=== PATIENT | female | born 1970 | race Caucasian/White ===

== ENCOUNTER 2020-01-08 10:54 | Emergency (ER) | payer OTHER, SELFPAY ==
--- NOTE | ~2020-01-08 | XR_ITS ---
EXAMINATION: XR foot RT min 3V EXAM DATE: 01/08/2020 11:36 INDICATION: Initial encounter following injury, with pain of the right foot. TECHNIQUE: Right foot dorsoplantar, lateral and oblique projections obtained and reviewed. There is no prior study for comparison. FINDINGS: There is acute nondisplaced right fifth closed posttraumatic metatarsal base fracture exte nding toward the fourth metatarsal base, a Simpson type fracture. There is overlying soft tissue swelli ng. No other suspicious right foot findings. IMPRESSION: Acute nondisplaced right Simpson fracture. Reviewed, dictated and finalized at location A. LIFT ATTENDANT
[2020-01-08 11:29] VITALS: BP 138/61; PULSE 81; RESP 20; TEMP 37.1; O2SAT 100
--- NOTE | 2020-01-08 12:15 | ED.LOWEXIN ---
HPI - Extremity Injury (Lower) General Chief Complaint: Extremity Injury, Lower Stated Complaint: r/foot pain Source: patient Mode of arrival: ambulatory Limitations: no limitations History of Present Illness HPI Narrative: Patient is a 49-year-old female who presents complaining of right foot pain. Patient reports she stepped o off of a step on her foot wrong yesterday. Patient reports she was seen in ED yesterday for an anaphylactic reaction to antibiotics but did not even mention foot pain. Patient reports increased pain and swelling as well as increased pain with ambulation. She denies taking [id number] medications for pain. She denies using ice or elevation. Related Data Home Medications Medication Instructions Recorded Confirmed aspirin 81 mg tablet,delayed 81 mg PO DAILY 11/02/19 01/08/20 release blood-glucose meter #1 each 11/02/19 12/24/19 gabapentin 600 mg tablet 600 mg PO DAILY 11/02/19 01/08/20 lisinopril 10 mg tablet 10 mg PO DAILY 11/02/19 01/08/20 metformin 500 mg tablet,extended 500 mg PO BID 11/02/19 01/08/20 release 24 hr omeprazole 20 mg capsule,delayed 20 mg PO DAILY 11/02/19 01/08/20 release blood sugar diagnostic #10 each 12/24/19 12/24/19 lancets 33 gauge #100 each 12/24/19 12/24/19 Allergies Allergy/AdvReac Type Severity Reaction Status Date / Time sulfamethizole Allergy Unknown Tachycardia Verified 05/27/19 10:38 trimethoprim Allergy Unknown Tachycardia Verified 05/27/19 10:38 AMOXICILLIN TRIHYDRATE Allergy Mild HIVES Uncoded 06/19/10 11:12 POTASSIUM CLAVULANATE Allergy Mild HIVES Uncoded 06/19/10 11:12 Review of Systems Review of Systems: Narrative: CONSTITUTIONAL: Denies fever, chills, or sweats. EYES: Denies visual changes, redness, or discharge. ENT: Denies rhinorrhea, congestion, sore throat, or otalgia. CARDIOVASCULAR: Denies chest pain, palpitations, or edema. RESPIRATORY: Denies cough or dyspnea. GASTROINTESTINAL: Denies abdominal pain, nausea, vomiting, or diarrhea. GENITOURINARY: Denies dysuria or hematuria. SKIN: Denies rash or itching. MUSCULOSKELETAL: Denies back pain, joint pain, or myalgia. Reports right foot pain and swelling NEUROLOGIC: Denies headache, numbness, dizziness, or weakness. PSYCHIATRIC: Denies anxiety or depression. [facility] Past Medical History Medical History Acute non-recurrent maxillary sinusitis Chronic low back pain without sciatica GERD (gastroesophageal reflux disease) Family History Family History Grandparent Hypertension Family history of kidney disease Family history of dementia Family history of throat cancer Family history of malignant neoplasm of urinary bladder Mother Acute myocardial infarction Family history of chronic obstructive pulmonary disease Social History Social History Smoking status: Heavy tobacco smoker Alcohol intake: current Gender identity (if verbalized by the patient): Female Exam Narrative: Exam Narrative: GENERAL: Well-appearing, well-nourished, and in no acute distress. HEAD: Normocephalic, atraumatic. EYES: No redness or drainage. Conjunctiva are normal. ENT: Mucous membranes pink and moist. CHEST: No respiratory distress. Clear to auscultation. HEART: Regular rate and rhythm. No murmur appreciated. Normal peripheral pulses. EXTREMITIES: Mild edema and point tenderness to right lateral foot. Distal sensation intact, good peripheral pulses, good capillary refill SKIN: Warm, dry, no rash. NEURO: No focal deficits. Alert and oriented x3. Gait steady. PSYCH: Normal affect. No signs of depression or anxiety. Course Vital Signs Vital signs: Vital Signs Temperature 37.1 C 01/08/20 11:29 Pulse Rate 81 01/08/20 11:29 Respiratory Rate 01/08/20 11:29 Blood Pressure 138/61 01/08/20 11:29 Pulse Oximetry 100 0
== END 2020-01-08 12:29 | disposition home or self-care (01) ==
PROVIDERS: Emergency Provider Nurse Practitioner; PCP Family Medicine
DX: S92.354A Nondisplaced fracture of fifth metatarsal bone, right foot, initial encounter for closed fracture (principal); X50.0XXA Overexertion from strenuous movement or load, initial encounter; F17.200 Nicotine dependence, unspecified, uncomplicated; K21.9 Gastro-esophageal reflux disease without esophagitis
CPT/HCPCS: 29515; 73630; 99214; G0463

== ENCOUNTER → 2021-09-12 12:13 | Outpatient (CLI) | payer OTHER, SELFPAY ==
--- NOTE | ~2021-09-12 | XR_ITS ---
EXAMINATION: XR foot RT min 3V DATE: 09/12/2021 12:27 INDICATION: Right foot pain. TECHNIQUE: 4 views of right foot were obtained. COMPARISON: Right foot radiographs 01/08/2020 FINDINGS: Bone alignment is normal. No fracture. There is an old healed fracture of fifth metatarsal with internal fixation with lag screw. There is mild osteoarthritis of first interphalangeal joint, f irst metatarsophalangeal joint, and talonavicular joint. There are enthesophytes at the posterior and plantar aspects of calcaneal tuberosity. IMPRESSION: 1. Mild polyarticular osteoarthritis. Reviewed, dictated and finalized at location A.
--- NOTE | ~2021-09-12 | XR_ITS ---
XR foot LT min 3V DATE: 09/12/2021 12:27 INDICATION: Right foot pain, generalized TECHNIQUE: 4 views COMPARISON: None FINDINGS: There is distal Achilles tendon calcification. Mild plantar calcaneal enthesopathy. There is old fracture deformity of the proximal phalanx of the second digit and mild osteoarthritis a t the second metatarsophalangeal joint. No recent fracture or dislocation, periosteal reaction or bone destruction. No erosive change. IMPRESSION: Mild plantar calcaneal enthesopathy Distal Achilles tendon calcification Old fracture deformity of proximal phalanx of second digit and mild osteoarthritis at second metatars ophalangeal joint Reviewed, dictated and finalized at location B. IMPRESSION: Mild plantar calcaneal enthesopathy Distal Achilles tendon calcification Old fracture deformity of proximal phalanx of second digit and mild osteoarthri tis at second metatarsophalangeal joint
== END ==
PROVIDERS: PCP Family Medicine; Visit Provider Family Medicine
DX: M77.32 Calcaneal spur, left foot (principal); M19.071 Primary osteoarthritis, right ankle and foot
CPT/HCPCS: 73630

== ENCOUNTER → 2024-07-13 14:51 | Outpatient (CLI) | payer OTHER, SELFPAY ==
--- NOTE | ~2024-07-13 | XR_ITS ---
XR shoulder LT min 2V Ordering provider: Tremaine Johnston MD History: . M25.512 - Pain in left shoulder . Comparison: None. FINDINGS: BONES: No acute fracture or dislocation. JOINT SPACES: The acromioclavicular joint is normal. The glenohumeral joint is normal. SOFT TISSUES: Normal. IMPRESSION: No acute osseous abnormality left shoulder. Reviewed, dictated and finalized at location A.
== END ==
LOC: EXPTROY 14:55
PROVIDERS: PCP Family Medicine; Visit Provider Family Medicine
DX: M25.512 Pain in left shoulder (principal)
CPT/HCPCS: 73030

== ENCOUNTER 2024-11-03 08:14 | Outpatient (CLI) | payer OTHER, SELFPAY ==
--- NOTE | ~2024-11-03 | MR_ITS ---
EXAMINATION: MR shoulder LT wo con DATE: 11/03/2024 08:48 INDICATION: Left shoulder pain. Tendinitis. Left shoulder injury several months prior. TECHNIQUE: Magnetic resonance imaging (MRI) of the left shoulder was performed without intravenous co ntrast. Sequences included axial PD-weighted FS FSE, coronal oblique PD-weighted FS FSE, coronal obli que T2-weighted FS FSE, sagittal PD-weighted FS FSE, and sagittal T1-weighted SE. COMPARISON: None. FINDINGS: Coracoacromial arch: The acromion undersurface is minimally curved in morphology (type I-II). The coracoacromial ligament is normal. Moderate acromioclavicular osteoarthritis. Rotator cuff: Moderate supraspinatus and mild infraspinatus tendinopathy. There extending 1.5 cm along the superior facet footplate of the supraspinatus tendon which centrally appears full or near full-thickness but without significant medial retraction of the teres minor tendon is normal. Moderate subscapularis ten dinopathy with split tear between the portion of the tendon attached to the cephalad third of the les ser tuberosity and the more superficial portion of the tendon which remains attached to the intact tr ansverse humeral ligament and which extends 1 cm medially from the medial rim of the intertubercular groove. Normal rotator cuff muscle bulk and signal. Biceps tendon, glenoid labrum and glenohumeral cartilage: The long head of the biceps tendon is partially subluxed across the medial rim of the intertubercular groove at the site of the subscapularis tendon split tear. There is moderate tendinopathy and partia l thickness tear involving approximately half the cross-sectional area of the tendon centered at the junction of the internal extra-articular portions of the tendon. There is also an accessory head of t he long head biceps tendon which distally is contiguous with the articular sided fibers of the distal supraspinatus tendon. There is a superior, anterior to posterior tear of the glenoid labrum (SLAP te ar). Glenohumeral cartilage is normal. Fluid: There is a small glenohumeral joint effusion which extends into the deep subscapular recess. There is mild synovitis at the axillary recess. Additional mild increased fluid and mild tenosynovitis along the long head biceps tendon sheath. No loose osteochondral bodies. Mild increased fluid signal along the subacromial/subdeltoid bursa consistent with mild bursitis. Bones: Bone alignment is normal. No fracture or pathologic marrow replacing process. There is mild degenerat john subarticular cystlike change at the lateral head of the clavicle. There is additional mild degene rative cystic change at the lesser tuberosity and along the floor of the intertubercular groove. IMPRESSION: 1. Moderate supraspinatus and subscapularis tendinopathy with small tear with full/near full-thicknes s component along the superior facet of the supraspinatus tendon with additional small split tear fredis ng the cephalad third of the distal subscapularis tendon. 2. Bicipital tenosynovitis with moderate tendinopathy and partial-thickness tear at the junction of t he intra-articular and extra articular portion of the long head biceps tendon which is partially subl uxed into the subscapularis tendon tear defect. Of note there is intact except 3 long head biceps ten don which is contiguous with the bursal side of the anterior distal supraspinatus tendon. 3. SLAP tear at the superior glenoid labrum. 4. Moderate acromioclavicular osteoarthritis with mild underlying subacromial/subdeltoid bursitis. Reviewed, dictated and finalized at location A. VATING CONTRACTOR IMPRESSION: 1. Moderate supraspinatus and subscapularis tendinopathy with small tear with f ull/near full-thickness component along the superior facet of the supraspinatus tendon with additional small split tear along the cephalad third of the distal subscapularis tendon. 2. Bicipital tenosynovitis with moderate tendinopathy and partial-thickness tea r at the junction of the intra-articular and extra articular portion of the juliette g head biceps tendon which is partially subluxed into the subscapularis tendon tear defect. Of note there is intact except 3 long head biceps tendon which is contiguous with the bursal side of the anterior distal supraspinatus tendon. 3. SLAP tear at the superior glenoid labrum. 4. Moderate acromioclavicular osteoarthritis with mild underlying subacromial/s ubdeltoid bursitis.
== END 2024-11-03 08:15 | disposition home or self-care (01) ==
LOC: GOSHIMG 08:15
PROVIDERS: PCP Family Medicine; Visit Provider Orthopaedic Surgery
DX: M19.012 Primary osteoarthritis, left shoulder (principal); S43.432A Superior glenoid labrum lesion of left shoulder, initial encounter; X58.XXXA Exposure to other specified factors, initial encounter; M75.22 Bicipital tendinitis, left shoulder
CPT/HCPCS: 73221

== ENCOUNTER 2024-11-09 11:29 | Outpatient (CLI) | payer OTHER, SELFPAY ==
[2024-11-09 12:14] LABS: Anion Gap 4 mmol/L (4-12); Blood Urea Nitrogen 11 mg/dL (7-17); Calcium 9.5 mg/dL (8.4-10.2); Carbon Dioxide 32 mmol/L (22-30); Chloride 102 mmol/L (98-107); Estimated Glomerular Filt Rate 52; Glucose 91 mg/dL (65-110); Sodium 138 mmol/L (137-145)
== END 2024-11-09 11:30 | disposition home or self-care (01) ==
LOC: ANHLAB 11:30
PROVIDERS: PCP Family Medicine; Visit Provider Anesthesiology
DX: E11.9 Type 2 diabetes mellitus without complications (principal)
CPT/HCPCS: 36415; 80048

== ENCOUNTER 2024-11-11 03:05 | Day surgery (SDC) | payer OTHER, SELFPAY ==
[2024-11-05 12:19] VITALS: BMI 35.4
--- NOTE | 2024-11-05 12:20 | PC.NURSE ---
Report to the Outpatient Waiting Room, entrance under the green pavilion located off [facility], at time _0700_ on date _[phone]_. Planned Procedure Time: _0900_.? Time changes happen often and if your time is changed the preop area will call you the afternoon before. - You and your visitor will be asked to self-screen and do not enter if you have any COVID symptoms. Please call surgeon if you need to reschedule. - A mask is optional within the hospital at this time. Patients may have clear liquids (water, carbonated beverages, clear teas, apple juice) until 3 hours prior to surgery with a maximum of 20 ounces. - No food from midnight until time of surgery and no smoking. This includes no chewing gum, candy or mints. Take only the following medications with a SIP of water on the morning of surgery: __Buspirone, Duloxetine, Gabapentin and if needed Tramadol and or Flonase and or inhaler DO NOT STOP ANY OF YOUR OTHER PRESCRIPTION MEDICATIONS PRIOR TO SURGERY EXCEPT THE FOLLOWING Medications to discontinue per physician ___Vitamins stop 11-08-2024, Aspirin stop [id number]___Odpqb with Dr Tesfaye's office if need to stop Ibuprofen. Please no make-up, nail telugu, hairspray, perfume, deodorant, or body powder the day of surgery.? No jewelry (including any body piercings) or valuables the day of surgery, leave them at home.? Please take a shower or bath the night before, or the morning of, surgery with an antibacterial soap.? Wear comfortable, loose fitting clothing.? - Jewelry must be removed prior to entering the operating room.? Rings and piercings that are not removed may be cut off. - The hospital will not accept responsibility for valuables.? - Please leave all valuables, including medications, at home the day of surgery. If you are going home after surgery, a licensed p d driver must drive you home.? - NO public transportation without another adult if you receive anesthesia. - We recommend that an adult stay with you for 24 hours following discharge. - We also recommend that you do not drive, make important decision, drink alcoholic beverages, or take any drugs that were not prescribed by your health care provider for at least 24 hours after your discharge time. Follow any additional instructions given to you from your surgeon. Telephone instructions given to __Kim__and asked if any additional questions and then verbalized understanding. Patient advised to call surgeon office or pre surgery nurse liaison [phone] if any additional questions.
--- NOTE | 2024-11-10 12:58 | PM.IMHP ---
H&P: HPI History of Present Illness Date/Time: 11/10/24 12:58 Chief Complaint: Patient shoulder pain left. She has weakness in the shoulder and pain with abduction external rotation. She has difficulty using her arm. She has failed conservative treatment like to consider repair of the rotator cuff and excision of the distal clavicle. Review of Systems Musculoskeletal: Musculoskeletal: Reports arthralgias, Reports joint swelling and Reports stiffness [facility] Past Medical History Medical History (Reviewed 11/05/24 @ 07:33 by Angela Bryant, [facility] [address]) Acute non-recurrent maxillary sinusitis Atherosclerosis of aorta (~02/28/24) severe atherosclerosis of the aorta and its branches on CT of the abdomen and pelvis 02/28/2024. Echo normal 03/10/2024. BMI 34.0-34.9,adult BMI 35.0-35.9,adult BMI 36.0-36.9,adult BMI 37.0-37.9, adult BMI 39.0-39.9,adult Body mass index [BMI] 38.0-38.9, adult Breast cancer screening by mammogram Chronic low back pain with bilateral sciatica Chronic low back pain without sciatica Colitis normal colonoscopy 07/27/2024. abdominal pain, thickening of the wall of the jejunum and descending colon 02/28/2024. Colon cancer screening 7 mm polyp of the transverse colon on 07/27/2024 with internal and external hemorrhoids. Recheck in 5 years. Constipation COPD (chronic obstructive pulmonary disease) COVID-19 (~04/13/23) tested positive 04/17/2023. Diarrhea Diarrhea Elevated liver enzymes AST 42, ALT 26, alkaline phosphatase 69 on 02/13/2022. AST 35, ALT 17 on 09/07/2024. Fatty infiltration of liver (~02/28/24) severe fatty infiltrate of liver on CT on 02/28/2024 mild ascites noted. Fibromyalgia GERD (gastroesophageal reflux disease) Grieving (06/13/24) Heart murmur previously undiagnosed Hypersomnia Simpson fracture Left anterior shoulder pain (~03/2024) X-ray of left shoulder on 07/13/2024 with no bony defects. Left hip pain MRI of the left hip on 04/19/2021 reveals mild left greater trochanteric bursitis and mild tendinopathy of the hamstring and gluteal muscles Low ferritin iron 50, 13% saturation, ferritin 12 on 06/27/2023. Morbid obesity with BMI of 40.0-44.9, adult Muscle spasm Nausea and vomiting Nuclear stress test on 09/25/2024 revealed no ischemia with baseline sinus bradycardia with nonspecific T-wave changes and normal scan with ejection fraction 66% with no EKG changes. Obesity (BMI 30-39.9) MARYJO on CPAP did not tolerate. Treated with weight loss. 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 Trial of auto titrating CPAP 6-18 cm water pressure. Patient declined treatment. Renal insufficiency BUN 12, creatinine 1.22 with GFR 53 on 09/07/2024. Rheumatoid arthritis Right anterior shoulder pain (~05/2022) Submandibular lymphadenitis (~03/01/24) left swollen, tender lymph Tendinopathy of left gluteal region Trochanteric bursitis of left hip Vitamin B12 deficiency Level normal at 469 with folic acid 24 on 06/27/2023. Yeast vaginitis Surgical History Surgical History Hx of foot surgery Family History Family History Grandparent Hypertension Family history of kidney disease Family history of dementia Family history of throat cancer Family history of malignant neoplasm of urinary bladder Mother Acute myocardial infarction Family history of chronic obstructive pulmonary disease CAD (coronary artery disease) Hypertension COPD (chronic obstructive pulmonary disease) Father No problems noted. Sibling Breast cancer Diabetes mellitus Social History Social History Smoking packs per day: 1 Smoking cigarettes per day: 20.0 Years smoked: 37 Smoking pack-years: 37.00 Smoking status: Current every day smoker Tobacco type: cigarettes Second hand tobacco smoke exposure: No Alcohol intake: never Substance use: current Substance use type: marijuana Other substance usage details: Every evening. Current Housing: Decline to Answer Concerned About Future Housing: Decline to Answer Difficulty Paying Gas/Electric Bills: Decline to Answer Difficulty Paying for Meds: Decline to Answer Currently Unemployed: Decline to Answer Education: Decline to Answer Difficulty w/ Childcare or Family Care: Decline to Answer Living arrangements: with family Occupation/Education: occupation Additional occupation/education comments: RN Gender identity (if verbalized by the patient): Female Spiritual care concerns: No Meds Home Medications and Allergies Home Medications ?Medication ?Instructions ?Recorded ?Confirmed ?Type aspirin 81 mg tablet,delayed 81 mg PO DAILY 11/02/19 11/05/24 History release (Adult Low Dose Aspirin) blood-glucose meter (Contour Next #1 ea 11/02/19 11/05/24 History EZ Meter kit) blood sugar diagnostic (Contour #10 ea 12/24/19 11/05/24 History Next Test Strips) lancets 33 gauge (BD Ultra Fine #100 ea 12/24/19 11/05/24 History Lancets) epinephrine 0.3 mg/0.3 mL 0.3 mg (0.3 mL) IM ONCE PRN 01/28/20 11/05/24 Rx injection, auto-injector (EpiPen) anaphylaxis #1 ea tramadol 50 mg tablet 100 mg PO TID PRN pain 07/24/22 11/05/24 History hydrochlorothiazide 25 mg tablet 25 mg PO . q.a.m. 01/10/23 11/05/24 History lisinopril 40 mg tablet 40 mg PO . q.a.m. 01/10/23 11/05/24 History cyanocobalamin (vitamin B-12) 1,000 mcg PO DAILY 07/29/23 11/05/24 History 1,000 mcg tablet atorvastatin 10 mg tablet 10 mg PO DAILY #90 tabs 10/17/23 11/05/24 Rx folic acid 1 mg tablet 1 mg PO DAILY #90 tabs 10/17/23 11/05/24 Rx metformin 500 mg tablet,extended 500 mg PO BID #180 tabs 10/17/23 11/05/24 Rx release 24 hr fluticasone propionate 50 1 spray intranasal BID #16 grams 02/13/24 11/05/24 Rx mcg/actuation nasal spray,suspension (Flonase Allergy Relief) albuterol 90 mcg-budesonide 80 2 inh inhalation QID PRN shortness 03/03/24 11/05/24 Rx mcg/actuation HFA aerosol inhaler of breath or wheezing #10.7 grams (Airsupra) ibuprofen 200 mg tablet 800 mg PO BID PRN Pain 07/13/24 11/05/24 History semaglutide 0.25 mg or 0.5 mg (2 0.5 mg (0.736 mL) subcut WEEKLY #3 09/07/24 11/05/24 Rx mg/3 mL) subcutaneous pen injector mL (Ozempic) duloxetine 60 mg capsule,delayed 60 mg PO BID #180 caps 10/08/24 11/05/24 Rx release (Cymbalta) omeprazole 40 mg capsule,delayed 40 mg PO DAILY #90 caps 10/08/24 11/05/24 Rx release gabapentin 800 mg tablet 800 mg PO TID #270 tabs 10/16/24 11/05/24 Rx buspirone 10 mg tablet 10 mg PO BID 11/05/24 11/05/24 History cholecalciferol (vitamin D3) 125 125 mcg PO DAILY 11/05/24 11/05/24 History mcg (5,000 unit) tablet (Vitamin D3) Allergies Allergy/AdvReac Type Severity Reaction Status Date / Time amoxicillin Allergy Severe Hives Verified 11/05/24 14:32 sulfamethizole Allergy Unknown Tachycardia Verified 11/05/24 12:07 trimethoprim Allergy Unknown Tachycardia Verified 11/05/24 12:07 Exam Narrative: On exam patient has impingement of the left shoulder. She is weak in abduction external rotation has pain with overhead activity. Neurologically she is grossly intact. She does have good neck motion without match in the way of radicular symptoms. She has pain with any motion of her arm. She is tender over degenerative the acromioclavicular joint as well. Eyes: General: appearance normal, both eyes and all related structures Neck: Neck: supple Resp: Effort & Inspection: normal respiratory effort Cardio: Rate: regular rate Rhythm: regular rhythm Radiology Reports: Comments: Patient: Miranda Lee EXAMINATION: MR shoulder LT wo con DATE: 11/03/2024 08:48 INDICATION: Left shoulder pain. Tendinitis. Left shoulder injury several months prior. TECHNIQUE: Magnetic resonance imaging (MRI) of the left shoulder was performed without intravenous contrast. Sequences included axial PD-weighted FS FSE, coronal oblique PD-weighted FS FSE, coronal oblique T2-weighted FS FSE, sagittal PD-weighted FS FSE, and sagittal T1-weighted SE. COMPARISON: None. FINDINGS: Coracoacromial arch: The acromion undersurface is minimally curved in morphology (type I-II). The coracoacromial ligament is normal. Moderate acromioclavicular osteoarthritis. Rotator cuff: Moderate supraspinatus and mild infraspinatus tendinopathy. There extending 1.5 cm along the superior facet footplate of the supraspinatus tendon which centrally appears full or near full-thickness but without significant medial retraction of the teres minor tendon is normal. Moderate subscapularis tendinopathy with split tear between the portion of the tendon attached to the cephalad third of the lesser tuberosity and the more superficial portion of the tendon which remains attached to the intact transverse humeral ligament and which extends 1 cm medially from the medial rim of the intertubercular groove. Normal rotator cuff muscle bulk and signal. Biceps tendon, glenoid labrum and glenohumeral cartilage: The long head of the biceps tendon is partially subluxed across the medial rim of the intertubercular groove at the site of the subscapularis tendon split tear. There is moderate tendinopathy and partial thickness tear involving approximately half the cross-sectional area of the tendon centered at the junction of the internal extra-articular portions of the tendon. There is also an accessory head of the long head biceps tendon which distally is contiguous with the articular sided fibers of the distal supraspinatus tendon. There is a superior, anterior to posterior tear of the glenoid labrum (SLAP tear). Glenohumeral cartilage is normal. Fluid: There is a small glenohumeral joint effusion which extends into the deep subscapular recess. There is mild synovitis at the axillary recess. Additional mild increased fluid and mild tenosynovitis along the long head biceps tendon sheath. No loose osteochondral bodies. Mild increased fluid signal along the subacromial/subdeltoid bursa consistent with mild bursitis. Bones: Bone alignment is normal. No fracture or pathologic marrow replacing process. There is mild degenerative subarticular cystlike change at the lateral head of the clavicle. There is additional mild degenerative cystic change at the lesser tuberosity and along the floor of the intertubercular groove. IMPRESSION: 1. Moderate supraspinatus and subscapularis tendinopathy with small tear with full/near full-thickness component along the superior facet of the supraspinatus tendon with additional small split tear along the cephalad third of the distal subscapularis tendon. 2. Bicipital tenosynovitis with moderate tendinopathy and partial-thickness tear at the junction of the intra-articular and extra articular portion of the long head biceps tendon which is partially subluxed into the subscapularis tendon tear defect. Of note there is intact except 3 long head biceps tendon which is contiguous with the bursal side of the anterior distal supraspinatus tendon. 3. SLAP tear at the superior glenoid labrum. 4. Moderate acromioclavicular osteoarthritis with mild underlying subacromial/subdeltoid bursitis. Foot X-Ray 09/12/21 Shoulder X-Ray 07/13/24 Shoulder MRI 11/03/24 Assessment and Plan Assessment and plan (1) Rotator cuff tear, left: Code(s): M75.102 - Unspecified rotator cuff tear or rupture of left shoulder, not specified as traumatic Status: Acute Assessment and Plan: Patient has rotator cuff tear left. She has got pain with overhead motion she is weak in abduction external rotation has pain and give-way with any activity she is tender over the AC joint as well. Has failed conservative treatment today she has had medicine therapy cortisone exercise and time. She would like to consider rotator cuff surgery. Will begin with arthroscopy of the shoulder assess the joint. And then proceed with open distal clavicle excision rotator cuff debridement repair. I have discussed this with her risks benefits limitations and alternatives in detail she understands and agrees would like to proceed. (2) Acromioclavicular arthrosis: Code(s): M19.019 - Primary osteoarthritis, unspecified shoulder Status: Acute
[2024-11-11] VITALS (9 sets, daily range): BP systolic 91–154; BP diastolic 38–69; PULSE 61–66; RESP 12–18; TEMP 36.2–37.1; O2SAT 98–100
[2024-11-11] MEDS: ACETAMINOPHEN 500 MG TABLET 1000 MG PO (07:35)
[2024-11-11] MEDS: KETOROLAC 15 MG/ML VIAL (*BKC) IV PUSH (07:35)
[2024-11-11 07:38] LABS: Glucose Point of Care 118 mg/dl (65-105)
--- NOTE | 2024-11-11 08:15 | WPDHPUPDATE1 ---
History and Physical Update Update Date/Time: 11/11/24 08:15 History and Physical has been reviewed, including an updated exam of the patient. There are NO changes in the patient's condition. Risks, benefits, and alternatives have been discussed and questions answered. Patient agrees to proceed with procedure.
--- NOTE | 2024-11-11 08:37 | WPDANESEPPF ---
Anes - Initial Pre Proc Eval Procedure: Operation Date: 11/11/24 09:00 Proposed Procedures p Left Shoulder Arthroscopy, Open Rotator Cuff Repair, Distal Clavicle Excision, Biceps Tenolysis versus Biceps Tenodesis - Aldair Tesfaye MD Date/Time: 11/11/24 08:37 Surgeon: Aldair Tesfaye MD Pre Op Diagnosis: Lt Rot Cuff Tear, AC Arthritis, Left Biceps Tear Patient Data Age: 54 Gender: F Height: 1.6 m Weight: 90.9 kg Last Vital Signs Temp 97.2 F L 11/11/24 06:59 Pulse 63 11/11/24 06:59 Resp 16 11/11/24 06:59 BP 128/51 L 11/11/24 06:59 Pulse Ox 99 11/11/24 06:59 O2 Del Method Room Air 11/11/24 06:59 Allergies Allergy/AdvReac Type Severity Reaction Status Date / Time amoxicillin Allergy Severe Hives Verified 11/11/24 07:03 sulfamethizole Allergy Unknown Tachycardia Verified 11/11/24 07:03 trimethoprim Allergy Unknown Tachycardia Verified 11/11/24 07:03 Home Medications ?Medication ?Instructions ?Recorded ?Confirmed ?Type aspirin 81 mg tablet,delayed 81 mg PO DAILY 11/02/19 11/05/24 History release (Adult Low Dose Aspirin) blood-glucose meter (Contour Next #1 ea 11/02/19 11/05/24 History EZ Meter kit) blood sugar diagnostic (Contour #10 ea 12/24/19 11/05/24 History Next Test Strips) lancets 33 gauge (BD Ultra Fine #100 ea 12/24/19 11/05/24 History Lancets) epinephrine 0.3 mg/0.3 mL 0.3 mg (0.3 mL) IM ONCE PRN 01/28/20 11/05/24 Rx injection, auto-injector (EpiPen) anaphylaxis #1 ea tramadol 50 mg tablet 100 mg PO TID PRN pain 07/24/22 11/05/24 History hydrochlorothiazide 25 mg tablet 25 mg PO . q.a.m. 01/10/23 11/05/24 History lisinopril 40 mg tablet 40 mg PO . q.a.m. 01/10/23 11/05/24 History cyanocobalamin (vitamin B-12) 1,000 mcg PO DAILY 07/29/23 11/05/24 History 1,000 mcg tablet atorvastatin 10 mg tablet 10 mg PO DAILY #90 tabs 10/17/23 11/05/24 Rx folic acid 1 mg tablet 1 mg PO DAILY #90 tabs 10/17/23 11/05/24 Rx metformin 500 mg tablet,extended 500 mg PO BID #180 tabs 10/17/23 11/05/24 Rx release 24 hr fluticasone propionate 50 1 spray intranasal BID #16 grams 02/13/24 11/05/24 Rx mcg/actuation nasal spray,suspension (Flonase Allergy Relief) albuterol 90 mcg-budesonide 80 2 inh inhalation QID PRN shortness 03/03/24 11/05/24 Rx mcg/actuation HFA aerosol inhaler of breath or wheezing #10.7 grams (Airsupra) ibuprofen 200 mg tablet 800 mg PO BID PRN Pain 07/13/24 11/05/24 History semaglutide 0.25 mg or 0.5 mg (2 0.5 mg (0.736 mL) subcut WEEKLY #3 09/07/24 11/05/24 Rx mg/3 mL) subcutaneous pen injector mL (Ozempic) duloxetine 60 mg capsule,delayed 60 mg PO BID #180 caps 10/08/24 11/05/24 Rx release (Cymbalta) omeprazole 40 mg capsule,delayed 40 mg PO DAILY #90 caps 10/08/24 11/05/24 Rx release gabapentin 800 mg tablet 800 mg PO TID #270 tabs 10/16/24 11/05/24 Rx buspirone 10 mg tablet 10 mg PO BID 11/05/24 11/05/24 History cholecalciferol (vitamin D3) 125 125 mcg PO DAILY 11/05/24 11/05/24 History mcg (5,000 unit) tablet (Vitamin D3) Laboratory Tests 11/11/24 07:19 POC Capillary Glucose 118 H mg/dl (65-105) Patient hx anesthesia problems: none Family hx anesthesia problems: none Results Review: All pre-operative results and documents have been reviewed as part of the pre-operative evaluation. [facility] Past Medical History Medical History Renal insufficiency BUN 12, creatinine 1.22 with GFR 53 on 09/07/2024. BMI 34.0-34.9,adult Nausea and vomiting Nuclear stress test on 09/25/2024 revealed no ischemia with baseline sinus bradycardia with nonspecific T-wave changes and normal scan with ejection fraction 66% with no EKG changes. Left anterior shoulder pain (~03/2024) X-ray of left shoulder on 07/13/2024 with no bony defects. Grieving (06/13/24) Diarrhea COPD (chronic obstructive pulmonary disease) BMI 35.0-35.9,adult Submandibular lymphadenitis (~03/01/24) left swollen, tender lymph Atherosclerosis of aorta (~02/28/24) severe atherosclerosis of the aorta and its branches on CT of the abdomen and pelvis 02/28/2024. Echo normal 03/10/2024. Colitis normal colonoscopy 07/27/2024. abdominal pain, thickening of the wall of the jejunum and descending colon 02/28/2024. Fatty infiltration of liver (~02/28/24) severe fatty infiltrate of liver on CT on 02/28/2024 mild ascites noted. BMI 36.0-36.9,adult Constipation Muscle spasm Low ferritin iron 50, 13% saturation, ferritin 12 on 06/27/2023. Vitamin B12 deficiency Level normal at 469 with folic acid 24 on 06/27/2023. Chronic low back pain with bilateral sciatica COVID-19 (~04/13/23) tested positive 04/17/2023. Diarrhea Obesity (BMI 30-39.9) Colon cancer screening 7 mm polyp of the transverse colon on 07/27/2024 with internal and external hemorrhoids. Recheck in 5 years. Fibromyalgia Morbid obesity with BMI of 40.0-44.9, adult Right anterior shoulder pain (~05/2022) Breast cancer screening by mammogram MARYJO on CPAP did not tolerate. Treated with weight loss. 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 Trial of auto titrating CPAP 6-18 cm water pressure. Patient declined treatment. BMI 37.0-37.9, adult Tendinopathy of left gluteal region Trochanteric bursitis of left hip Hypersomnia Heart murmur previously undiagnosed Body mass index [BMI] 38.0-38.9, adult Left hip pain MRI of the left hip on 04/19/2021 reveals mild left greater trochanteric bursitis and mild tendinopathy of the hamstring and gluteal muscles BMI 39.0-39.9,adult Elevated liver enzymes AST 42, ALT 26, alkaline phosphatase 69 on 02/13/2022. AST 35, ALT 17 on 09/07/2024. Rheumatoid arthritis Yeast vaginitis Simpson fracture Chronic low back pain without sciatica Acute non-recurrent maxillary sinusitis GERD (gastroesophageal reflux disease) Surgical History Surgical History Hx of foot surgery Family History Family History Grandparent Hypertension Family history of kidney disease Family history of dementia Family history of throat cancer Family history of malignant neoplasm of urinary bladder Mother Acute myocardial infarction Family history of chronic obstructive pulmonary disease CAD (coronary artery disease) Hypertension COPD (chronic obstructive pulmonary disease) Father No problems noted. Sibling Breast cancer Diabetes mellitus Social History Social History Smoking packs per day: 1 Smoking cigarettes per day: 20.0 Years smoked: 37 Smoking pack-years: 37.00 Smoking status: Current every day smoker Tobacco type: cigarettes Second hand tobacco smoke exposure: No Alcohol intake: never Substance use: current Substance use type: marijuana Other substance usage details: Every evening. 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 ) Neurological: alert and oriented Last oral intake: >/= 8 hours ASA classification: III Emergent: no Anesthetic plan: proceed Anesthesia type and monitoring: general ETT and standard monitoring Results Review: All pre-operative results and documents have been reviewed as part of the pre-operative evaluation. COPD, now vapes daily, at approx 430 am today. MARYJO but no longer on CPAP after 60 lb wt loss. DM fsbs 118. Nml stress test 09/2024. Shared decision w pt and friend to forego ISB due to risk of phrenic nerve involvement and dyspnea in this pt w COPD and hx MARYJO. Informed Consent: The patient's anesthetic plan and its attendant risks and benefits were discussed with the patient/family/POA. Questions were solicited and answers provided to the satisfaction of the patient/family/POA.
[2024-11-11] MEDS: ceFAZolin 2 GM/D5W 50 ML 2 GM/50 ML BAG IVPB (09:10)
[2024-11-11] MEDS: LIDO 1%/EPINEPHRINE 1:100,000 50 ML VIAL 30 ML INFILTRATE (09:31)
--- NOTE | 2024-11-11 10:01 | P.OP_ITS ---
Procedure Note - Detailed Date of Procedure 11/11/24 Pre-op Diagnosis LEFT Rotator Cuff Tear AC Arthritis LEFT Biceps Teendinitis Post-op Diagnosis Same Procedure Performed Rotator cuff repair, distal clavicle excision Surgeon Aldair Tesfaye MD Assistant Manager [facility] Anesthesia General Description of Procedure Patient brought to the operative room #7. A general anesthetic was administered. The patient was placed in the beach chair position with the LEFT shoulder exposed.? After sterile prep and drape, standard posterior and lateral portals were used for arthroscopy. The joint itself looked reasonably good. The biceps tendon showed fraying but only in about 10 to 20% of the tendon this was debrided and left. The remaining biceps tendon was intact.? There was fraying and tearing of the rotator cuff area in the supraspinatus tear region. This was gently debrided.? The subacromial space had an intense bursa, this was debrided with a shaver and acromioplasty performed arthroscopically.? The subacromial space was quite tight initially. I then proceeded to open the shoulder. A longitudinal incision made from the AC joint distalward over the shoulder.? Dissection carried down to the fascia. The fascia overlying the acromioclavicular joint was split. The AC joint found and a distal clavicle excision performed removing 3 to 4 millimeters of bone.? The edges beveled.? The deltoid was then split from the tip of the acromion. The remainder of the bursa was debrided.? The rotator cuff was torn in the supraspinatus interval. This was debrided and repaired to bone using #2 Ethibond suture.? At this point the deltoid was repaired to itself,the acromion and the trapezius #2 Ethibond. The skin was closed with 2-0 Vicryl and cindy.? Sterile dressing applied patient tolerated well left the operating room satisfactory condition. Estimated Blood Loss 50 Drains No Packing No Pathology None sent Complications No immediate complications Condition Stable Disposition PACU [facility] Billing Surgery - Charge Forward: Surgery Billing ([id number] RTC Repair: [id number] DCE)
[2024-11-11] MEDS: LACTATED RINGERS 1,000 ML 30 ML IV CONT ×2 (10:37)
[2024-11-11 10:43] LABS: Glucose Point of Care 99 mg/dl (65-105)
[2024-11-11] MEDS: fentaNYL CITRATE INJ (*CRX) 100 MCG/2 ML VIAL 25 MCG IV PUSH ×3 (11:28→11:33)
[2024-11-11] MEDS: oxyCODONE HCL (*CRX) 5 MG TAB IR PO (12:05)
== END 2024-11-11 12:33 | disposition home or self-care (01) ==
PROVIDERS: PCP Family Medicine; Visit Provider Orthopaedic Surgery
PROC: (CPT 29805; principal; 2024-11-11 09:00)
DX: M75.102 Unspecified rotator cuff tear or rupture of left shoulder, not specified as traumatic (principal); M19.012 Primary osteoarthritis, left shoulder; M75.22 Bicipital tendinitis, left shoulder; J44.9 Chronic obstructive pulmonary disease, unspecified; K21.9 Gastro-esophageal reflux disease without esophagitis; G47.10 Hypersomnia, unspecified; M62.838 Other muscle spasm; G47.33 Obstructive sleep apnea (adult) (pediatric); N28.9 Disorder of kidney and ureter, unspecified; M06.9 Rheumatoid arthritis, unspecified; E53.8 Deficiency of other specified B group vitamins; I70.0 Atherosclerosis of aorta; M54.32 Sciatica, left side; M54.31 Sciatica, right side; G89.29 Other chronic pain; F12.90 Cannabis use, unspecified, uncomplicated; F17.210 Nicotine dependence, cigarettes, uncomplicated; E66.9 Obesity, unspecified; Z68.35 Body mass index [BMI] 35.0-35.9, adult; Z99.89 Dependence on other enabling machines and devices; Z79.891 Long term (current) use of opiate analgesic; Z79.84 Long term (current) use of oral hypoglycemic drugs; Z79.51 Long term (current) use of inhaled steroids; Z79.1 Long term (current) use of non-steroidal anti-inflammatories (NSAID); Z79.85 Long-term (current) use of injectable non-insulin antidiabetic drugs; Z79.82 Long term (current) use of aspirin; Z98.890 Other specified postprocedural states; Z80.1 Family history of malignant neoplasm of trachea, bronchus and lung; Z80.52 Family history of malignant neoplasm of bladder; Z80.3 Family history of malignant neoplasm of breast; Z82.49 Family history of ischemic heart disease and other diseases of the circulatory system
CPT/HCPCS: 23412; 23120; 82948; A4565; A9270; J0690; J1100; J1885; J2003; J2004; J2250; J2270; J2405; J2704; J3010; J7120

== ENCOUNTER 2025-07-19 14:08 | Outpatient (CLI) | payer OTHER, SELFPAY ==
--- NOTE | ~2025-07-19 | MR_ITS ---
MRI of the lumbar spine Clinical History: Gait abnormality Technique: Axial T2-weighted images, and sagittal T1-weighted, T2-weighted, and T2 fat-sat images were acquired. Findings: There is no fracture or subluxation of the lumbar spine. Vertebral bodies maintain normal height and alignment. No suspicious bone marrow signal abnormality seen. There are reactive marrow signal changes about the L3-L4 disc space. At L1-L2, there is disc bulge with mild facet arthropathy. No central canal stenosis. There is mild left neural foraminal narrowing. Right neural foramen preserved. At L2-L3, there is mild disc bulge and mild facet arthropathy. No central canal stenosis. There is mild bilateral neural foraminal narrowing. At L3-L4, there is diffuse disc bulge with severe facet arthropathy. There is severe spinal canal stenosis/thecal sac compression. There is severe bilateral neural foraminal compromise. At L4-L5, there is diffuse disc bulge with severe facet arthropathy. There is mild central canal stenosis. There is severe right neural foraminal narrowing, and moderate to severe left neural foraminal narrowing. At L5-S1, there is no disc bulge or herniation. There is severe right facet arthropathy. No central canal stenosis or neural foraminal narrowing. Paravertebral soft tissues are unremarkable. Impression: Advanced degenerative spondylosis, especially at L3-L4 and L4-L5. Please see details above. Reviewed, dictated and finalized at [facility] M. Impression: Advanced degenerative spondylosis, especially at L3-L4 and L4-L5. Please see de tails above.
--- NOTE | ~2025-07-19 | MR_ITS ---
MRI of the brain Clinical History: Gait abnormality Technique: Axial and sagittal T1-weighted images were acquired. These were followed by axial T2-weighted, diffusion weighted, gradient, and FLAIR images. Findings: No significant signal abnormality seen in the brain parenchyma. No acute infarct, intracranial hemorrhage, or mass lesion. Ventricles and subarachnoid spaces are unremarkable. Orbits are unremarkable. Paranasal sinuses and mastoid air cells are clear. Major intracranial flow voids are intact. Sagittal midline structures are intact. IMPRESSION: Normal exam. Reviewed, dictated and finalized at location M. IMPRESSION: Normal exam.
== END 2025-07-19 14:09 | disposition home or self-care (01) ==
LOC: GOSHIMG 14:09
PROVIDERS: PCP Family Medicine; Visit Provider Family Medicine
DX: R26.9 Unspecified abnormalities of gait and mobility (principal); R41.89 Other symptoms and signs involving cognitive functions and awareness; M47.896 Other spondylosis, lumbar region
CPT/HCPCS: 70551; 72148

== ENCOUNTER 2025-08-31 12:36 | Outpatient (CLI) | payer OTHER, SELFPAY ==
--- OUTSIDE RECORDS SUMMARY | 2025-08-31 12:39 | XMS_ITS | Clinical Summary ---
Author Organization [facility] Address [address] [address] Care Team Providers Care Data Management Associate Name Role Phone Tremaine Johnston MD Primary Care Provider [phone] Source Comments [facility],non-owned Affiliates and Associated Physician Practices is amultiple site organization consisting of ambulatory clinics and hospital sitesin [place], [place], [place] and [place]. This disclosure is being madepursuant to the Care Everywhere program and may not contain all information available regarding this patient. Last updated 18.[facility] Allergies Active Allergy Reactions Criticality Noted Date Comments Sulfamethoxazole W-Trimethoprim Anaphylaxis High 10/2021 Penicillins Anaphylaxis High 03/12/2021 Medications * Be aware that medications may not be up to date on this document. Alwaysverify current medications with the patient. atorvastatin (LIPITOR) 10 MG tablet 0 Active buPROPion XL 24hr (WELLBUTRIN-XL) 150 MG tablet bupropion HCl XL 150 mg 24 hr tablet, extended release Active busPIRone (BUSPAR) 15 MG tablet 0 Active DULoxetine (CYMBALTA) 60 MG capsule 0 Active EPINEPHrine (EPIPEN) 0.3 MG/0.3ML auto-injector pen epinephrine 0.3 mg/0.3 mL injection, auto-injector Active fluticasone propionate (FLONASE) 50 MCG/ACT nasal spray INSTILL 2 SPRAYS INTO EACH NOSTRIL ONCE A DAY NEEDED 0 Active folic acid (FOLVITE) 1 MG tablet Take 1 mg by mouth once daily 0 Active gabapentin (NEURONTIN) 100 MG capsule TAKE 2 CAPSULES TWICE DAILY FOR NEUROPATHY 1 Active leflunomide (ARAVA) 10 MG tablet Take 10 mg by mouth once daily 0 Active lisinopril (PRINIVIL; ZESTRIL) 10 MG tablet 0 Active metFORMIN ER 24hr (GLUCOPHAGE XR) 500 MG tablet 0 Active Methotrexate Sodium (METHOTREXATE, PF,) 50 MG/2ML injection INJECT 0.6 MILLILITER (15 MG) BY SUBCUTANEOUS ROUTE ONCE WEEKLY 0 Active omeprazole (PRILOSEC) 20 MG capsule 0 Active predniSONE (DELTASONE) 5 MG tablet TAKE 2 TABLETS BY ORAL ROUTE DAILY FOR 30 DAYS 1 Active OZEMPIC, 0.25 OR 0.5 MG/DOSE, 2 MG/1.5ML pen INJECT 0.5MG UNDER THE SKIN WEEKLY FOR 4 DOSES 1 Active traMADol (ULTRAM) 50 MG tablet TAKE 1 TABLET BY MOUTH WITH OVER THE COUNTER TYLENOL THREE TIMES DAILY NEEDED 1 Active Active Problems No known active problems Immunizations Immunization Administration Dates Next Due Ana [employer] primary monoval ent 12+ yr 0.3mL Purple cap 12/19/2020,11/27/2020 Social History Tobacco Use Types Packs/Day Years Used Date Smoking Tobacco: Every Day Smokeless Tobacco: Never Alcohol Use Standard Drinks/Week Comments Never 0 (1 standard drink = 0.6 oz pur e alcohol) AUDIT-C Answer Date Recorded Q1: How often do you have a drink containing alc ohol? 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 Legal Sex Female 10:47 PM HYDRAULIC PUNCH PRESS OPERATOR Gender Identity Female 12/01/2020 12:21 PM HYDRAULIC PUNCH PRESS OPERATOR Sexual Orientation Straight 12/01/2020 12 :21 PM HYDRAULIC PUNCH PRESS OPERATOR Last Filed Vital Signs Vital Sign Reading Time Taken Comments Blood Pressure 114/77 03/12/2021 9:50 AM CDT Pulse 65 03/12/2021 9:50 AM CDT Temperature 36.9 C (98.5 F) 03/12/2021 9:50 AM CDT Respiratory Rate 18 03/12/2021 9:50 AM CDT Oxygen Saturation 99% 03/12/2021 9:50 AM CDT Inhaled Oxygen Concentration - - Weight 104.3 kg (230 lb) 03/24/2021 8:41 AM CDT Height 160 cm (5' 3) 03/24/2021 8:41 AM CDT Body Mass Index 40.74 03/24/2021 8:41 AM CDT Plan of Treatment Health Maintenance Due Date Last Done Comments COLOGUARD (AGES 45-75) - COL ON CA SCREENING 1972 COLON MONITORING 1972 COLONOSCOPY - COLON CA SCREENING 1972 CT COLONOGRAPHY - COLON CA SCREENING 1972 Colorectal Cancer Screening 1972 FIT - COLON CA SCREENING 1972 FLEX SIG - COLON CA SCREENING 1972 MAMMOGRAM 1972 HIV SCREENING 1987 HEPATITIS C SCREENING 07/07/1990 DTAP/TDAP/TD VACCINES (1 - Tdap) 1991 HEPATITIS B VACCINE (1 of 3 - 19+ 3-dose series) 1991 PNEUMOCOCCAL VACCINE 50+ (1 of 2 - PCV) 1991 PAP SMEAR 1993 SCREENING FOR DIABETES 03/24/2021 ZOSTER VACCINE (1 of 2) 2022 DEPRESSION SCREENING 12/02/2024 COVID-19 VACCINE (3 - 2024-2 6 season) 2025 12/19/2020, 11/27/2020 INFLUENZA VACCINE (#1) 2025 HIB VACCINE Aged Out No longer eligi ble based on patient's age to complete this topic HPV VACCINE Aged Out No longer eligi ble based on patient's age to complete this topic MENINGOCOCCAL (Group B) VACCINE SHARED DECISION-MAKING Aged Out No longer eligible based on patient's age to complete this topic MENINGOCOCCAL GROUPS A/C/Y/W VACCINE Aged Out No longer eligible b ased on patient's age to complete this topic Insurance [facility] Address: [id number] [place] [phone] * Guarantor: RANJIT SMITH Account Type Relation to Patient Date of Phone Billing Address Personal/Family 1970 [employer] [facility] Address: [address] [place] [address] [facility] Address: [address] [place] [address] [facility] Address: [facility] [address] [place] [address] [facility] Address: [address] [place] [address] [employer] [facility] Address: [address] [place] [id number] [employer] [facility] Address: [address] [place] [id number] [facility] Address: [address] [place] [address] [facility] Address: [address] [place] [address] [facility] Address: [address] [place] [address] [employer] [facility] Address: [address] [place] [address] [employer] Care Teams Data Management Associate Relationship Specialty Start Date End Date Tremaine Johnston MD [address] [place] [address] PCP - General Family Medicine 03/12/21
--- OUTSIDE RECORDS SUMMARY | 2025-08-31 12:39 | XMS_ITS | Clinical Summary ---
Author Organization [facility] Physician Office Building [address] [place] [id number] Care Team Providers Care Regional Refrigerated Cdl Truck Driver Name Role Phone Tremaine Johnston MD Primary Care Provider [phone] Allergies Active Allergy Reactions Criticality Noted Date Comments Penicillins Anaphylaxis High 03/12/2021 Sulfamethoxazole-Trimethoprim Anaphylaxis High 03/12 Upadacitinib Headache Low 11/08/2022 Medications lisinopriL (PRINIVIL,ZESTR IL) 40 mg tablet Take 1 tablet (40 mg total) by mouth daily 04/14/[address] (CYMBALTA) 60 mg capsule Take 1 capsule (60 mg total) by mouth 2 (two) times a day Active gabapentin (NEURONTIN) 800 mg tablet Take 1 tablet (800 mg total) by mouth 3 (three) times a day 04/12/2024 Active busPIRone (BUSPAR) 15 mg tablet Take 1 tablet (15 mg total) by mouth 2 (two) times a day 11/28/2020 Active metFORMIN XR (GLUCOPHAGE XR) 500 mg 24 hr tablet Take 1 tablet (500 mg total) by mouth 2 (two) times a day Active omeprazole (PriLOSEC) 40 mg capsule Take 1 capsule (40 mg total) by mouth daily 04/14/2024 Active Ozempic 1 mg/dose (4 mg/3 mL) pen injector injection Inject 1 mg under the skin once a week 04/12/2024 Active hydroxychloroqu ine (PLAQUENIL) 200 mg tablet Take 1 tablet (200 mg total) by mouth 2 (two) times a day 08/03/2023 Active hydroCHLOROthia zide (HYDRODIURIL) 25 mg tablet Take 1 tablet (25 mg total) by mouth daily 02/08/2024 Active folic acid (FOLVITE) 1 mg tablet Take 1 tablet (1 mg total) by mouth daily Active aspirin 81 mg enteric coated tablet Take 1 tablet (81 mg total) by mouth daily Active pregabalin (Lyrica) 75 mg capsule take 1 capsule (75 mg) by oral route 2 times per day Oral 2 Active traMADoL (ULTRAM) 50 mg tablet TAKE 1-2 TABLETS BY MOUTH EVERY 8 HOURS NEEDED Active atorvastatin (LIPITOR) 10 mg tablet take 1 tablet (10 mg) by oral route once daily at bedtime Oral 1 11/28/2020 Active amLODIPine (Norvasc) 2.5 mg tablet take 1 tablet (2.5 mg) by oral route once daily Oral 1 Active Active Problems Problem Noted Date Diagnosed Date Gastroesophageal reflux disease 04/23/2024 Colon cancer screening 04/23/2024 Colitis 04/23/2024 CASTELLON (nonalcoholic steatohepatitis) 04/23/2024 Chronic diarrhea 04/23/2024 Surgical History Surgery Date Site/Laterality Comments PERCUTANEOUS PINNING METATARSAL FRACTURE 12/02/2019 - 12/01/2020 UPPER GASTROINTESTINAL ENDOSCOPY 07/27/2024 Normal esophagus. - Congestive gastropathy. Biopsied. - Erythematous mucosa in the antrum. Biopsied. - Normal examined duodenum. COLONOSCOPY 07/27/2024 See colonoscopy report/pathology report. Medical History Medical History Date Comments GERD (gastroesophageal reflux disease) Autoimmune disorder Arthritis Fibromyalgia Diabetes mellitus Hypertension Hypercholesteremia Family History Medical History Relation Name Comments Constipation Brother Kartik Constipation Mother Tracy Diarrhea Mother Tracy Breast cancer Sister 1 Ana Constipation Sister 1 Ana Diarrhea Sister 1 Ana Constipation Sister 2 Silvia Diarrhea Sister 2 Silvia Relation Name Status Comments Brother Kartik Alive Father Delgado Unknown Mother Tracy Alive Sister 1 Ana Alive Sister 2 Silvia Alive Social History Tobacco Use Types Packs/Day Years Used Date Smoking Tobacco: Every Day Cigarettes AUDIT-C Answer Date Recorded Q1: How often do you have a drink containing alc ohol? Monthly or less 07/27/2024 Q2: How many drinks containi ng alcohol do you have on a typical day when you are drinking? 1 or 2 07/27/2024 Q3: How often do you have si x or more drinks on one occasion? Never 07/27/2024 Personal Safety Answer Date Recorded Have you ever been in or are you currently in a harmful physical or emotional relationship or is someone making you feel afraid or unsafe? 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 Gender Identity Not on file Sexual Orientation Not on file Obstetrics History Last Filed Vital Signs Vital Sign Reading Time Taken Comments Blood Pressure 132/53 07/27/2024 9:47 AM CDT Pulse 58 07/27/2024 9:47 AM CDT Temperature 36.3 C (97.3 F) 07/27/2024 7:13 AM CDT Respiratory Rate 26 07/27/2024 9:47 AM CDT Oxygen Saturation 98% 07/27/2024 9:47 AM CDT Inhaled Oxygen Concentration - - Weight 90.3 kg (199 lb) 07/27/2024 7:13 AM CDT Height 157.5 cm (5' 2) 07/27/2024 7:13 AM CDT Body Mass Index 36.4 07/27/2024 7:13 AM CDT Plan of Treatment Health Maintenance Due Date Last Done Comments Breast Cancer Screening-Mammogram 1972 Cervical Cancer Screening 1972 Depression Screening 1972 Hepatitis B Screening 1990 Regular Well Visit/Exam 18-64 1990 Pneumococcal vaccine <65 (1 of 2 - PCV) 1991 Zoster Vaccine (1 of 2) 1991 DTaP/Tdap/Td Vaccine (4 - Tdap) 09/26/2004 09/25/2004, 05/04/1996, 07/19/1981, Additional history exists Covid-19 Vaccine (4 - 2024-2 6 season) 2025 12/08/2021, 12/19/2020, 11/27/2020 Influenza Vaccine (#1) 2025 09/22/2020 Colon Cancer Screening-Colonoscopy 07/27/20342023 Hepatitis C Screening Completed 02/13/2022 Procedures Procedure Name Priority Date/Time Associated Diagnosis Comments COLONOSCOPY 07/27/2024 7:10 AM CDT HEPATITIS C RNA, QUANTITATIVE, PCR Routine 02/13/2022 10:27 AM CDT from Last 3 Months or Most Recently Relevant to Health Maintenance Results * Colonoscopy (07/27/2024 7:10 AM CDT) Anatomical Region Laterality Modality Other Narrative Procedure Note Saba Vasquez MD - 07/27/2024 7:10 AM CDT ENDOSCOPY LAB Patient Name: Miranda Jesus Procedure Date: 07/27/2024 7:10 AM Admit Type: Outpatient Room: [facility] Date of : 1970 Instrument Name: [id number] Gender: Female Note Status: Finalized Procedure: Colonoscopy Indications: Screening for colorectal malignant neoplasm, Incidental - Chronic diarrhea Providers: Saba Vasquez M.D. Referring MD: Tremaine Johnston M.D. Medicines: Monitored Anesthesia Care Complications: No immediate complications. Estimated Blood Loss: Estimated blood loss was minimal. Procedure: Pre-Anesthesia Assessment: - Prior to the procedure, a History and Physicalwas performed, and patient medications and allergieswere reviewed. The patient's tolerance of previous anesthesia was also reviewed. The risks andbenefits of the procedure and the sedation options and risks were discussed with the patient. All questions were answered, and informed consent was obtained. Prior Anticoagulants: The patient has taken noanticoagulant or antiplatelet agents except for aspirin. ASAGrade Assessment: III - A patient with severe systemic disease. After reviewing the risks and benefits,the patient was deemed in satisfactory condition to undergo the procedure. - The risks and benefits of the procedure and the sedation options and risks were discussed with the patient. All questions were answered and informed consent was obtained. The benefits, risks and alternatives of theprocedure and sedation were discussed and informed consentwas obtained. All questions were answered. Please referto the signed informed consent document in the medical record. The scope was passed under direct vision.The Colonoscope was introduced through the anus and advanced to the the terminal ileum, with identification of the appendiceal orifice and IC valve. The colonoscopy was performed without difficulty. The patient tolerated the procedurewell. The quality of the bowel preparation was good. The quality of the bowel preparation was evaluatedusing the BBPS (Judsonia Bowel Preparation Scale) withscores of: Right Colon = 2 (minor amount of residual staining, small fragments of stool and/or opaque liquid, but mucosa seen well), Transverse Colon = 3 (entire mucosa seen well with no residual staining, small fragments of stool or opaque liquid) and Left Colon = 2 (minor amount of residual staining, small fragments of stool and/or opaque liquid, but mucosa seen well). The total BBPS score equals 7. Thequality of the bowel preparation was good. Anatomical landmarks were photographed. The bowel preparation used was SUTAB via split dose instruction. Findings: Hemorrhoids were found on perianal exam. The terminal ileum appeared normal. A 7 mm polyp was found in the transverse colon. The polyp wassessile. The polyp was removed with a cold snare. Resection and retrieval were complete. Verification of patient identification for the specimen was done. Estimated blood loss was minimal. A single small-mouthed diverticulum was found in the sigmoid colon. Non-bleeding external and internal hemorrhoids were found during retroflexion. The hemorrhoids were medium-sized. The exam was otherwise without abnormality. Biopsies were taken with a cold forceps in the entire colon for histology. Verification of patient identification for the specimenwas done. Estimated blood loss was minimal. Impression: - Hemorrhoids found on perianal exam. - The examined portion of the ileum was normal. - One 7 mm polyp in the transverse colon, removedwith a cold snare. Resected and retrieved. - Diverticulosis in the sigmoid colon. - Non-bleeding external and internal hemorrhoids. - The examination was otherwise normal. - Biopsies were taken with a cold forceps for histology in the entire colon. Recommendation: - Patient has a contact number available for emergencies. The signs and symptoms of potential delayed complications were discussed with thepatient. Return to normal activities tomorrow. Written discharge instructions were provided to thepatient. - Resume previous diet. - Continue present medications. - Await pathology results. - Repeat colonoscopy in 5 years for surveillance. - Return to GI clinic as previously scheduled. Saba Vasquez M.D. 07/27/2024 9:30:47 AM Number of Addenda: 0 Note Initiated On: 07/27/2024 7:10 AM Scope Withdrawal Time: 0 hours 22 minutes 23 seconds Scope In: 8:42:26 AM Scope Out: 9:16:52 AM Saba Vasquez MD ENDOSCOPY PROCEDURES Final Result * Hepatitis C (HCV) RNA PCR, quantitative (02/13/2022 10:27 AM CDT) Pathologist [facility] HCV RNA result Not Detected JULIAN LARSON Comment: The quantifiable range of this assay is 15 IU/mL to 100,000,000 IU/mL (1.18 log IU/mL to 8.00 log IU/mL). Testing was performed by the [facility] 6800 HCV Test ([employer] Testing performed at [facility] Current Interpretive Data was last revised on 2021 Testing performed by: [facility], [address] [place]., [address] Blood 02/13/2022 10:2 7 AM CDT 02/13/2022 10:12 PM CDT us Tremaine Johnston MD LAB MICROBIOLOGY - GENERA [place] [id number] [address] Department [place] [address] from Last 3 Months or Most Recently Relevant to Health Maintenance Insurance [facility] [employer] Address: [address] [place] [phone] [facility] [employer] Address: [address] [address] [place] [address] Advance Directives For more information, please contact: [phone] * Full Code (Latest Code Status on File) Date Activated Date Inactivated Comments 07/27/2024 6:56 AM 07/27/2024 2:03 PM Care Teams Regional Refrigerated Cdl Truck Driver Relationship Specialty Start Date End Date Tremaine Johnston MD [address] [address] PCP - General Family Medicine 03/17/24
--- NOTE | 2025-08-31 14:00 | NEURO_ITS ---
Impression: # Known diabetic complains of increasing numbness of all extremities. ? # Bilateral Carpal Tunnel Syndrome. ? # Bilateral ulnar neuropathy across the elbows. ? # Abnormal needle/EMG exam. ? # Superimposed on underlying neuropathy. Nerve Conduction Studies ?Stim Site NR Peak (ms) P-T Amp (?V) Site1 Site2 Delta-P (ms) Dist (cm) Dov (m/s) Left Median Anti Sensory (2-3nd Digit) Wrist ? 4.6 11.7 Wrist 2-3nd Digit 4.6 14.0 30 Wrist ? 4.5 12.2 Wrist 2-3nd Digit 4.6 14.0 30 Right Median Anti Sensory (2-3nd Digit) Wrist ? 4.6 16.7 Wrist 2-3nd Digit 4.6 14.0 30 Wrist ? 4.6 16.8 Wrist 2-3nd Digit 4.6 14.0 30 Left Radial Anti Sensory (Base 1st Digit) Wrist ? 1.6 10.4 Wrist Base 1st Digit 1.6 0.0 Right Radial Anti Sensory (Base 1st Digit) Wrist ? 1.9 17.4 Wrist Base 1st Digit 1.9 0.0 Left Sup Fibular Anti Sensory (Ant Lat Mall)??? NO RESPONSE 14 cm NR 14 cm Ant Lat Mall 16.0 Right Sup Fibular Anti Sensory (Ant Lat Mall)??? NO RESPONSE 14 cm NR 14 cm Ant Lat Mall 16.0 Left Sural Anti Sensory (Lat Mall)??? NO RESPONSE Calf NR Calf Lat Mall 16.0 Right Sural Anti Sensory (Lat Mall) Calf ? 8.8 5.5 Calf Lat Mall 8.8 16.0 18 Left Ulnar Anti Sensory (5th Digit) Wrist ? 2.5 31.4 Wrist 5th Digit 2.5 14.0 56 Right Ulnar Anti Sensory (5th Digit) Wrist ? 2.3 30.3 Wrist 5th Digit 2.3 14.0 61 ?Stim Site NR Onset (ms) O-P Amp (mV) Site1 Site2 Delta-0 (ms) Dist (cm) Dov (m/s) Left Median Motor (Abd Poll Brev) Wrist ? 4.1 0.7 Elbow Wrist 4.3 27.0 63 Elbow ? 8.4 3.8 Right Median Motor (Abd Poll Brev) Wrist ? 5.0 1.0 Elbow Wrist 5.8 27.0 47 Elbow ? 10.8 0.7 Left Peroneal Motor (Vastus Med) Ankle ? 4.0 0.9 Popit Ankle 9.6 38.0 40 Popit ? 13.6 0.9 Right Peroneal Motor (Vastus Med) Ankle ? 4.4 1.9 Popit Ankle 8.3 38.0 46 Popit ? 12.7 2.5 Left Tibial Motor (Abd Gongora Brev)??? NO RESPONSE Ankle NR Knee Ankle 41.0 Knee NR Right Tibial Motor (Abd Gongora Brev) Ankle ? 6.8 0.1 Knee Ankle 9.1 41.0 45 Knee ? 15.9 0.3 Left Ulnar Motor (Abd Dig Minimi) Wrist ? 2.0 3.9 A Elbow Wrist 6.8 29.0 43 A Elbow ? 8.8 2.4 B Elbow Wrist 5.0 23.0 46 B Elbow ? 7.0 0.5 Right Ulnar Motor (Abd Dig Minimi) Wrist ? 2.1 6.7 A Elbow Wrist 5.6 27.0 48 A Elbow ? 7.7 4.2 B Elbow Wrist 4.2 20.0 48 B Elbow ? 6.3 3.2 F Wave Studies ?NR F-Lat (ms) L-R F-Lat (ms) Left Median (Mrkrs) (Abd Poll Brev) ? 31.47 0.88 Right Median (Mrkrs) (Abd Poll Brev) ? 32.35 0.88 Left Peroneal (Mrkrs) (EDB) ? 54.85 1.10 Right Peroneal (Mrkrs) (EDB) ? 53.75 1.10 Left Tibial (Mrkrs) (Abd Hallucis) ? 65.15 0.00 Right Tibial (Mrkrs) (Abd Hallucis) ? 65.15 0.00 Left Ulnar (Mrkrs) (Abd Dig Min) ? 28.17 0.50 Right Ulnar (Mrkrs) (Abd Dig Min) ? 28.67 0.50 Electromyography ?Side Muscle Nerve Root Ins Act Fibs Amp Dur Recrt Comment Right 1stDorInt Ulnar C8-T1 Nml Nml Nml Nml Nml Left 1stDorInt Ulnar C8-T1 Nml Nml Nml Nml Nml Right ABD Dig Min Ulnar C8-T1 Nml Nml Nml Nml Nml Left ABD Dig Min Ulnar C8-T1 Nml Nml Nml Nml Nml Left Abd Poll Brev Median C8-T1 Nml Nml Nml Nml Nml Right Abd Poll Brev Median C8-T1 Nml Nml Nml Nml Nml Left Abd Poll Long Radial (Post Int) C7-8 Nml Nml Nml Nml Nml Right Abd Poll Long Radial (Post Int) C7-8 Nml Nml Nml Nml Nml Right AntTibialis Dp Br Fibular L4-5 Nml Nml Nml Nml Nml Left AntTibialis Dp Br Fibular L4-5 Nml Nml Nml Nml Nml Right BrachioRad Radial C5-6 Nml Nml Nml Nml Nml Left BrachioRad Radial C5-6 Nml Nml Nml Nml Nml Right Ext Dig Brev Dp Br Fibular L5, S1 Nml Nml Nml >12ms +1 Left Ext Dig Brev Dp Br Fibular L5, S1 Nml Nml Nml >12ms +1 Right Ext Digitorum Radial (Post Int) C7-8 Nml Nml Nml Nml Nml Left Ext Digitorum Radial (Post Int) C7-8 Nml Nml Nml Nml Nml Right Ext Indicis Radial (Post Int) C7-8 Nml Nml Nml Nml Nml Left Ext Indicis Radial (Post Int) C7-8 Nml Nml Nml Nml Nml Left Fibularis Long Sup Br Fibular L5-S1 Nml Nml Nml >12ms +1 Right Fibularis Long Sup Br Fibular L5-S1 Nml Nml Nml >12ms +1 Right Flex Dig Long Tibial L5-S2 Nml Nml Nml >12ms +1 Left Flex Dig Long Tibial L5-S2 Nml Nml Nml >12ms +1 Right FlexPolLong Median (Ant Int) C7-8 Nml Nml Nml Nml Nml Left FlexPolLong Median (Ant Int) C7-8 Nml Nml Nml Nml Nml Left Gastroc Tibial S1-2 Nml Nml Nml Nml Nml Right Gastroc Tibial S1-2 Nml Nml Nml Nml Nml Right PronatorTeres Median C6-7 Nml Nml Nml Nml Nml Left PronatorTeres Median C6-7 Nml Nml Nml Nml Nml Left QuadratusFem QuadFemoris L4-5, S1 Nml Nml Nml Nml Nml Right QuadratusFem QuadFemoris L4-5, S1 Nml Nml Nml Nml Nml
== END 2025-08-31 12:37 | disposition home or self-care (01) ==
PROVIDERS: PCP Family Medicine; Visit Provider Family Medicine
DX: G56.03 Carpal tunnel syndrome, bilateral upper limbs (principal); G56.23 Lesion of ulnar nerve, bilateral upper limbs; R94.131 Abnormal electromyogram [EMG]
CPT/HCPCS: 95886; 95913

== ENCOUNTER 2025-10-06 11:18 | Outpatient (CLI) | payer OTHER, SELFPAY ==
--- NOTE | ~2025-10-06 | MR_ITS ---
EXAMINATION: MR cervical spine wo con DATE: 10/06/2025 13:13 INDICATION: Bilateral cervical neuropathy. TECHNIQUE: Magnetic resonance imaging (MRI) of the cervical spine was performed without intravenous contrast. COMPARISON: None FINDINGS: There is mild kyphosis of lower cervical spine. Vertebral body heights are normal. There is mildly decreased disc height at C5-C6. The spinal cord signal intensity is normal. The following disc levels are specifically discussed: C2-C3: The disc does not extend beyond the endplate margin. There is no uncovertebral joint osteoarthritis. There is moderate bilateral facet joint osteoarthritis. There is no neural foraminal stenosis. There is no central canal stenosis. C3-C4: The disc does not extend beyond the endplate margin. There is no uncovertebral joint osteoarthritis. There is mild bilateral facet joint osteoarthritis. There is no neural foraminal stenosis. There is no central canal stenosis. C4-C5: There is a central protrusion. There is no uncovertebral joint osteoarthritis. There is mild right and moderate left facet joint osteoarthritis. There is no neural foraminal stenosis. There is mild central canal stenosis. C5-C6: There is a central extrusion. There is moderate bilateral uncovertebral joint osteoarthritis. There is mild bilateral facet joint osteoarthritis. There is mild right neural foraminal stenosis. There is mild central canal stenosis. C6-C7: There is a central extrusion. There is mild bilateral uncovertebral joint osteoarthritis. There is mild bilateral facet joint osteoarthritis. There is no neural foraminal stenosis. There is mild central canal stenosis. C7-T1: There is a central extrusion. There is no uncovertebral joint osteoarthritis. There is mild bilateral facet joint osteoarthritis. There is no neural foraminal stenosis. There is mild central canal stenosis. IMPRESSION: 1. Mild cervical spondylosis. Reviewed, dictated and finalized at location E. [employer]
== END 2025-10-06 11:19 | disposition home or self-care (01) ==
LOC: GOSHIMG 11:19
PROVIDERS: PCP Neurological Surgery; Visit Provider Family Medicine
DX: M47.22 Other spondylosis with radiculopathy, cervical region (principal)
CPT/HCPCS: 72141